=== PATIENT | female | born 1975 | race Caucasian/White ===

== ENCOUNTER → 2017-06-09 | Outpatient (CLI) | payer OTHER ==
[~2017-06-09] MED LIST: BACTRIM,SEPT1 TABLET PO; MOTRIN800 MG PO; PERCOCET 5/31 TABLET PO; TRAMADOL HCL50 MG PO
== END | disposition home or self-care (01) ==
DX: R13.10 Dysphagia, unspecified (principal)
CPT/HCPCS: 92611 GN

== ENCOUNTER 2017-09-27 09:15 | Day surgery (SDC) | payer OTHER ==
[~2017-09-27] VITALS: Ht 167.6 cm; Wt 83.9 kg
[~2017-09-27 09:15] MED LIST changes: +PEPCID20 MG PO; +VITAMIN D31000 UNI2 PO
[2017-09-27 10:01] VITALS: BP 115/72
[2017-09-27 10:06] VITALS: BP 115/72
[2017-09-27 17:30] VITALS: BP 128/58
[2017-09-27 19:20] LABS: HEMATOCRIT 34.3 % (36.0-46.0); HEMOGLOBIN 10.5 G/DL (11.9-15.5); MCV 80.9 FL (83-99)
[2017-09-27 20:36] VITALS: BP 100/55
[2017-09-28 00:10] VITALS: BP 109/57
[2017-09-28 03:45] VITALS: BP 103/58
[2017-09-28 06:58] LABS: HEMATOCRIT 31.4 % (36.0-46.0); HEMOGLOBIN 9.4 G/DL (11.9-15.5); MCH 24.4 PG (29.0-34.0); MCHC 29.9 G/DL (30.0-36.0); MCV 81.6 FL (83-99); RBC DIS.WIDTH-CV 15.2 % (11.8-14.6); RBC DIS.WIDTH-SD 45.1 % (39-53); RED BLOOD COUNT 3.85 M/uL (3.80-5.20)
[2017-09-28 07:24] LABS: CHLORIDE 107 MEQ/L (99-109); CREATININE 0.6 MG/DL (0.6-1.3); GFR ESTIMATE (CALCULATED) > 59 mL/min/; GLUCOSE 86 mg/dL (70-99); POTASSIUM 3.9 MEQ/L (3.7-5.4); SODIUM 139 MEQ/L (136-147); UREA NITROGEN (BUN) 6 mg/dL (9-23)
[2017-09-28 07:41] LABS: PLAT.SUFFICIENCY ADEQUATE
[2017-09-28 07:45] VITALS: BP 113/57
[2017-09-28 08:16] LABS: PLATELET COUNT 215 K/uL (156-360)
[2017-09-28] MEDS ORDERED: ENDOCET 5-3251 EACH PO (10:26)
== END 2017-09-28 13:30 | disposition home or self-care (01) ==
LOC: SDC 09:15 → ENRESERV 14:30 → 2SOUTH 14:30 → 2EASTP 14:30 → 2SOUTH 14:30 → ENRESERV 14:39 → SDC 17:18 → 2EASTP 17:19
PROVIDERS: Obstetrics & Gynecology
DX: D25.0 Submucous leiomyoma of uterus (principal); N80.0 Endometriosis of uterus; N92.1 Excessive and frequent menstruation with irregular cycle; N94.10 Unspecified dyspareunia; N80.3 Endometriosis of pelvic peritoneum; K66.0 Peritoneal adhesions (postprocedural) (postinfection); N83.02 Follicular cyst of left ovary; N70.11 Chronic salpingitis
CPT/HCPCS: 80048; 85014; 85018; 85027; 88302; 88307; G0378; J0131; J0330; J0690; J1100; J1170; J1885; J2250; J2270; J2405; J2710; J2765; J7120; Q0175; S0020